=== PATIENT | male | born 1950 | race Hispanic/Latino ===

== ENCOUNTER 2022-08-09 19:11 | Emergency (ER) | payer MEDICARE, BC ==
[~2022-08-09] VITALS: Ht 177.8 cm; Wt 79.4 kg
[2022-08-09] MEDS ORDERED: IBUPROFEN 200 MG TAB PO ONE (19:30)
[2022-08-09] MEDS ORDERED: CEFTRIAXONE 1 GM VIAL IM ONE (19:30)
[2022-08-09] MEDS ORDERED: CEFDINIR300 MG PO (19:40)
[2022-08-09] MEDS ORDERED: PYRIDIUM100 MG PO (19:40)
[2022-08-09] MEDS ORDERED: IBUPROFEN200 MG PO (19:40)
[2022-08-09] MEDS ORDERED: PROBIOTIC & AC1 EACH PO (19:40)
== END 2022-08-09 20:30 | disposition home or self-care (01) ==
LOC: EDBD 19:26 → FSED 19:26
DX: R50.9 Fever, unspecified (principal); N41.0 Acute prostatitis; R30.0 Dysuria; R00.0 Tachycardia, unspecified; R53.1 Weakness
CPT/HCPCS: 81003; 99283; J0696

== ENCOUNTER 2024-10-30 16:38 | Inpatient (IN) | payer BC, MEDICARE ==
[~2024-10-30] VITALS: Ht 330.2 cm
[~2024-10-30 16:38] MED LIST: CEFDINIR300 MG PO; CLOPIDOGREL75 MG PO; CRESTOR10 MG PO; FINASTERIDE5 MG PO; FLOMAX0.4 MG PO; IBUPROFEN200 MG PO; LOSARTAN POTASS50 MG PO; PROBIOTIC & AC1 EACH PO; PYRIDIUM100 MG PO; XARELTO20 MG PO
[2024-10-30 17:19] LABS: BASOPHILS % 0.2 % (0.0-1.0); EOSINOPHILS % 0.1 % (0.0-6.0); HEMATOCRIT 48.3 % (38.2-49.6); HEMOGLOBIN 16.5 g/dL (14.0-18.0); LYMPHOCYTES # (AUTO) 0.7 (1.0-3.2); LYMPHOCYTES % 4.9 % (18.0-39.1); MEAN CORPUSCULAR HEMOGLOBIN 33.5 pg (28-32); MEAN CORPUSCULAR HGB CONC 34.2 g/dL (31-35); MONOCYTES # (AUTO) 0.9 (0.2-0.8); MONOCYTES % 6.1 % (4.4-11.3); NEUTROPHILS # (AUTO) 12.7 (2.1-6.9); NEUTROPHILS % 88.1 % (38.7-80.0); PLATELET COUNT 177 x10e3/uL (140-360); RED BLOOD COUNT 4.93 x10e6/uL (4.3-5.7); WHITE BLOOD COUNT 14.39 x10e3/uL (4.8-10.8)
[2024-10-30 17:37] LABS: INR 0.94; PROTHROMBIN TIME 13.2 seconds (11.9-14.5)
[2024-10-30 17:38] LABS: PARTIAL THROMBOPLASTIN TIME 32.5 seconds (23.8-35.5)
[2024-10-30 17:40] LABS: INFLUENZA A AG NEGATIVE (NEGATIVE); INFLUENZA B AG NEGATIVE (NEGATIVE)
[2024-10-30] MEDS: ACETAMINOPHEN 325 MG TAB PO ONE (17:40)
[2024-10-30 17:41] LABS: CORONAVIRUS COVID-19 AG NEGATIVE (NEGATIVE)
[2024-10-30] MEDS: SODIUM CHLORIDE 0.9% 1000ML 1,000 ML IV ONE (17:41)
[2024-10-30 17:46] LABS: ALBUMIN 4.7 g/dL (3.5-5.0); ALBUMIN/GLOBULIN RATIO 1.3 (0.8-2.0); ANION GAP 16.9 mmol/L (8-16); BILIRUBIN,TOTAL 1.2 mg/dL (0.2-1.2); CALCIUM 10.4 mg/dL (8.4-10.2); CREATININE, SERUM 1.2 mg/dL (0.72-1.25); POTASSIUM 3.9 mmol/L (3.5-5.1); TOTAL PROTEIN 8.4 g/dL (6.5-8.1)
[2024-10-30] MEDS ORDERED: SODIUM CHLORIDE FLUSH 10 ML SYR INJ PRN (18:30)
[2024-10-30] MEDS ORDERED: ONDANSETRON HCL INJ 2MG/ML 2ML 2 MG/ML VIAL IV PRN (18:30)
[2024-10-30 19:10] LABS: CLARITY,URINE SL CLOUDY (CLEAR); COLOR,URINE YELLOW (YELLOW); GLUCOSE, URINE NEGATIVE (NEGATIVE); KETONES,URINE 1+ (NEGATIVE); LEUKOCYTE ESTERASE ,URINE MODERATE (NEGATIVE); NITRITE,URINE POSITIVE (NEGATIVE); PH,URINE 7 (5 - 7); PROTEIN,URINE DIPSTICK 2+ (NEGATIVE); URINE UROBILINOGEN 0.2 mg/dL (0.2 - 1)
[2024-10-30 19:11] LABS: BILIRUBIN,URINE NEGATIVE (NEGATIVE)
[2024-10-30 19:23] LABS: BACTERIA,URINE MANY /HPF; WBC,URINE (MAN) >50 /HPF (0-5)
[2024-10-30 19:24] LABS: SPERM,URINE PRESENT
[2024-10-30 19:25] LABS: EPITHELIAL CELLS,URINE RARE /LPF; RBC,URINE 0-5 /HPF (0-5)
[2024-10-30] MEDS ORDERED: HYDRALAZINE HCL 20 MG/ML VIAL IV PRN (23:30)
[2024-10-30] MEDS ORDERED: POLYETHYLENE GLYCOL 3350 17 GM PACK PO PRN (23:30)
[2024-10-31] VITALS (9 sets, daily range): BP systolic 113–135; BP diastolic 48–66; PULSE 93–118; RESP 18–26; TEMP 98.1–100.8; O2SAT 94–97
[2024-10-31] MEDS: ACETAMINOPHEN 325 MG TAB PO PRN (05:31)
[2024-10-31 08:15] LABS: BASOPHILS # (AUTO) 0.1 (0.0-0.1); BASOPHILS % 0.2 % (0.0-1.0); EOSINOPHILS # (AUTO) 7.3 (0.0-0.4); HEMATOCRIT 40.4 % (38.2-49.6); HEMOGLOBIN 13.8 g/dL (14.0-18.0); LYMPHOCYTES # (AUTO) 1.6 (1.0-3.2); LYMPHOCYTES % 7.5 % (18.0-39.1); MEAN CORPUSCULAR HEMOGLOBIN 33.4 pg (28-32); MEAN CORPUSCULAR HGB CONC 34.2 g/dL (31-35); MEAN CORPUSCULAR VOLUME 97.8 fL (81-99); MONOCYTES # (AUTO) 1.4 (0.2-0.8); MONOCYTES % 6.6 % (4.4-11.3); NEUTROPHILS # (AUTO) 10.6 (2.1-6.9); PLATELET COUNT 144 x10e3/uL (140-360); RED BLOOD COUNT 4.13 x10e6/uL (4.3-5.7); RED CELL DISTRIBUTION WIDTH 13.1 % (11.7-14.4); WHITE BLOOD COUNT 21.15 x10e3/uL (4.8-10.8)
[2024-10-31 08:41] LABS: ALBUMIN 3.5 g/dL (3.5-5.0); ALBUMIN/GLOBULIN RATIO 1.1 (0.8-2.0); ANION GAP 15.5 mmol/L (8-16); BILIRUBIN,TOTAL 0.9 mg/dL (0.2-1.2); CALCIUM 9.1 mg/dL (8.4-10.2); CREATININE, SERUM 0.91 mg/dL (0.72-1.25); POTASSIUM 3.5 mmol/L (3.5-5.1); TOTAL PROTEIN 6.6 g/dL (6.5-8.1)
[2024-10-31] MEDS: DOCUSATE SODIUM 100 MG CAP PO SCH (09:46)
[2024-10-31] MEDS: FINASTERIDE 5 MG TAB PO SCH (09:46)
[2024-10-31] MEDS: TAMSULOSIN HCL 0.4 MG CAP PO SCH (09:46)
[2024-10-31] MEDS: SENNOSIDES 8.6 MG TAB PO SCH (09:46)
[2024-10-31 11:37] LABS: LYMPHOCYTES % (MANUAL) 10 % (19-48); MONOCYTES % (MANUAL) 7 % (3.4-9.0); NEUTROPHILS % (MANUAL) 82 % (40-74); PLATELET ESTIMATE ADEQUATE; PLATELET MORPHOLOGY COMMENT NORMAL; REACTIVE LYMPHOCYTES 1
[2024-10-31] MEDS: SODIUM CHLORIDE 0.9% 1000ML 1,000 ML IV SCH (13:01)
[2024-10-31] MEDS: POTASSIUM CHLORIDE 10MEQ EA PO ONE (13:01)
[2024-10-31 15:25] LABS: BASOPHILS % 0.2 % (0.0-1.0); HEMATOCRIT 38.9 % (38.2-49.6); HEMOGLOBIN 13.3 g/dL (14.0-18.0); LYMPHOCYTES # (AUTO) 1.2 (1.0-3.2); LYMPHOCYTES % 5.4 % (18.0-39.1); MEAN CORPUSCULAR HEMOGLOBIN 33.2 pg (28-32); MEAN CORPUSCULAR HGB CONC 34.2 g/dL (31-35); MONOCYTES # (AUTO) 1.2 (0.2-0.8); MONOCYTES % 5.3 % (4.4-11.3); NEUTROPHILS # (AUTO) 19.4 (2.1-6.9); NEUTROPHILS % 88.4 % (38.7-80.0); PLATELET COUNT 148 x10e3/uL (140-360); RED BLOOD COUNT 4.01 x10e6/uL (4.3-5.7); RED CELL DISTRIBUTION WIDTH 13.3 % (11.7-14.4); WHITE BLOOD COUNT 21.95 x10e3/uL (4.8-10.8)
[2024-10-31] MEDS: ENOXAPARIN SOD INJ 40 MG/0.4 ML SYR SC SCH (17:29)
[2024-10-31] MEDS: ATORVASTATIN 20 MG TAB PO SCH (22:53)
[2024-10-31] MEDS: MIRTAZAPINE 15 MG TAB PO SCH (22:53)
[2024-11-01] VITALS (7 sets, daily range): BP systolic 118–133; BP diastolic 57–63; PULSE 87–111; RESP 16–20; TEMP 97.9–100.2; O2SAT 95–98
[2024-11-01 06:01] LABS: BASOPHILS % 0.2 % (0.0-1.0); EOSINOPHILS % 0.1 % (0.0-6.0); HEMATOCRIT 35.7 % (38.2-49.6); HEMOGLOBIN 12.2 g/dL (14.0-18.0); LYMPHOCYTES # (AUTO) 1.3 (1.0-3.2); LYMPHOCYTES % 7.5 % (18.0-39.1); MEAN CORPUSCULAR HEMOGLOBIN 33.7 pg (28-32); MEAN CORPUSCULAR HGB CONC 34.2 g/dL (31-35); MEAN CORPUSCULAR VOLUME 98.6 fL (81-99); MONOCYTES # (AUTO) 1.1 (0.2-0.8); MONOCYTES % 6.6 % (4.4-11.3); NEUTROPHILS # (AUTO) 14.2 (2.1-6.9); NEUTROPHILS % 84.9 % (38.7-80.0); PLATELET COUNT 140 x10e3/uL (140-360); RED BLOOD COUNT 3.62 x10e6/uL (4.3-5.7); RED CELL DISTRIBUTION WIDTH 13.2 % (11.7-14.4); WHITE BLOOD COUNT 16.71 x10e3/uL (4.8-10.8)
[2024-11-01 06:15] LABS: ANION GAP 11.7 mmol/L (8-16); CALCIUM 8.3 mg/dL (8.4-10.2); CREATININE, SERUM 0.91 mg/dL (0.72-1.25); MAGNESIUM 1.7 MG/DL (1.3-2.1); POTASSIUM 3.7 mmol/L (3.5-5.1)
[2024-11-02] VITALS: BP 128/60; PULSE 93; RESP 17; TEMP 98.1; O2SAT 96
[2024-11-02 04:00] VITALS: BP 121/60; PULSE 74; RESP 20; TEMP 98.8; O2SAT 95
[2024-11-02 05:30] LABS: BASOPHILS % 0.4 % (0.0-1.0); EOSINOPHILS # (AUTO) 0.1 (0.0-0.4); EOSINOPHILS % 1.3 % (0.0-6.0); HEMATOCRIT 34.8 % (38.2-49.6); LYMPHOCYTES # (AUTO) 1.5 (1.0-3.2); LYMPHOCYTES % 17.6 % (18.0-39.1); MEAN CORPUSCULAR HGB CONC 34.5 g/dL (31-35); MONOCYTES # (AUTO) 0.9 (0.2-0.8); MONOCYTES % 10.3 % (4.4-11.3); NEUTROPHILS # (AUTO) 5.9 (2.1-6.9); NEUTROPHILS % 69.8 % (38.7-80.0); PLATELET COUNT 148 x10e3/uL (140-360); RED BLOOD COUNT 3.64 x10e6/uL (4.3-5.7); RED CELL DISTRIBUTION WIDTH 13.2 % (11.7-14.4); WHITE BLOOD COUNT 8.43 x10e3/uL (4.8-10.8)
[2024-11-02 05:36] LABS: MEAN CORPUSCULAR VOLUME 95.6 fL (81-99)
[2024-11-02 05:54] LABS: ANION GAP 11.3 mmol/L (8-16); CALCIUM 8.4 mg/dL (8.4-10.2); CREATININE, SERUM 0.81 mg/dL (0.72-1.25)
[2024-11-02 06:41] LABS: POTASSIUM 3.3 mmol/L (3.5-5.1)
[2024-11-02 07:49] VITALS: BP 109/57; PULSE 84; RESP 18; TEMP 98.5; O2SAT 96
[2024-11-02 09:00] VITALS: BP 109/57; PULSE 84; RESP 18; TEMP 98.5; O2SAT 96
[2024-11-02] MEDS ORDERED: CIPROFLOXACIN500 MG PO (09:21)
[2024-11-02] MEDS ORDERED: FLOMAX0.4 MG PO (09:21)
[2024-11-02] MEDS: TAMSULOSIN HCL 0.4 MG CAP PO SCH (10:31)
== END 2024-11-02 11:45 | disposition home or self-care (01) | DRG 872 ==
LOC: ER 16:40 → ERHOLD 18:19 → MED/SURG 10-31 00:23 → OBSVTOIN 10-31 11:52
PROVIDERS: ADMIT Internal Medicine; ATTEND Internal Medicine
PROC: 0T9B70Z Drainage of Bladder with Drainage Device, Via Natural or Artificial Opening (ICD-10-PCS; principal; 2024-10-30)
PROC: 3E03329 Introduction of Other Anti-infective into Peripheral Vein, Percutaneous Approach (ICD-10-PCS; 2024-10-30)
DX: A41.51 Sepsis due to Escherichia coli [E. coli] (principal); N30.00 Acute cystitis without hematuria; J81.1 Chronic pulmonary edema; N40.1 Benign prostatic hyperplasia with lower urinary tract symptoms; R33.8 Other retention of urine; K40.20 Bilateral inguinal hernia, without obstruction or gangrene, not specified as recurrent; R80.9 Proteinuria, unspecified; D64.9 Anemia, unspecified; I10 Essential (primary) hypertension; E78.2 Mixed hyperlipidemia; F17.210 Nicotine dependence, cigarettes, uncomplicated; R00.0 Tachycardia, unspecified; M19.91 Primary osteoarthritis, unspecified site; Z79.01 Long term (current) use of anticoagulants; Z79.02 Long term (current) use of antithrombotics/antiplatelets; Z79.899 Other long term (current) drug therapy; Z96.653 Presence of artificial knee joint, bilateral; Z88.5 Allergy status to narcotic agent
CPT/HCPCS: 36415; 51700; 71045; 74176; 80048; 80053; 81001; 83605; 83735; 85025; 85610; 85730; 87040; 87086; 87186; 93005; 99284; G0378; J0696; J1650; J2543; J7030